=== PATIENT | male | born 1950 | race Caucasian/White ===

== ENCOUNTER → 2020-04-13 | Outpatient (CLI) | payer MEDICARE, OTHER ==
[~2020-04-13] MED LIST: AUGMENTIN 875-1 EACH PO; BENTYL 10MG CAP10 MG PO; CETIRIZINE HCL10 MG PO; COLACE 100MG C100 MG PO; COZAAR100 MG PO; DICLOFENAC SODI75 MG PO; DOXYCYCLINE MO100 MG PO; DRISDOL1250 MCG PO; ELIQUIS 2.5 MG2.5 MG PO; ELIQUIS5 M1 PO; FLUZONE QU60 MCG/015 IM; GAS RELIEF125 M1 PO; HYDROCHLOROTHIA25 MG PO; IPRAT-ALBUT 0.5-3 ML INH; LEVALBUTER0.63 MG/3 NEB; LEVOFLOXACIN500 MG PO; MIRALAX17 GM PO; OMEPRAZOLE40 MG PO; PERCOCET 7.5-31 EACH PO; PRAVASTATIN SOD40 MG PO; PREDNISONE 20 M20 MG PO; PREDNISONE10 MG PO; PREDNISONE20 MG PO; PROSCAR 5 MG TAB5 MG PO; PROSCAR5 MG PO; SINGULAIR10 MG PO; SYMBICORT 16010.2 GM INH; TRELEGY ELLIPT1 EAC1 INH; TRELEGY ELLIPT1 EACH INH; VENTOLIN HFA 66.7 GM INH; VITAMIN D31250 MCG PO; VOLTAREN EC 7575 MG PO; ZANTAC150 MG PO; ZITHROMAX TRI-500 MG PO; ZOFRAN ODT 4 MG4 MG PO; ZYRTEC10 MG PO; [UNRECOGNIZED DRUG - REMARK]
== END ==
LOC: SLEEP-COR 10:39
DX: G47.33 Obstructive sleep apnea (adult) (pediatric) (principal)
CPT/HCPCS: 95810

== ENCOUNTER → 2020-04-30 | Outpatient (CLI) | payer MEDICARE, OTHER | LOC: HEART 5 15:22 | DX: J44.9 Chronic obstructive pulmonary disease, unspecified (principal); Z87.891 Personal history of nicotine dependence | CPT/HCPCS: 94010; 94729 ==

== ENCOUNTER 2020-06-25 05:06 | Emergency (ER) | payer MEDICARE, OTHER ==
[~2020-06-25 05:06] MED LIST changes: -AUGMENTIN 875-1 EACH PO; -BENTYL 10MG CAP10 MG PO; -CETIRIZINE HCL10 MG PO; -COLACE 100MG C100 MG PO; -DICLOFENAC SODI75 MG PO; -DRISDOL1250 MCG PO; -ELIQUIS5 M1 PO; -GAS RELIEF125 M1 PO; -LEVALBUTER0.63 MG/3 NEB; -MIRALAX17 GM PO; -OMEPRAZOLE40 MG PO; -PRAVASTATIN SOD40 MG PO; -PREDNISONE10 MG PO; -PROSCAR 5 MG TAB5 MG PO; -SINGULAIR10 MG PO; -TRELEGY ELLIPT1 EAC1 INH; -TRELEGY ELLIPT1 EACH INH; -VITAMIN D31250 MCG PO; -ZOFRAN ODT 4 MG4 MG PO; -ZYRTEC10 MG PO
[2020-06-25 05:46] LABS: HEMOGLOBIN 15.9 gm/dl (14.0-17.5); RED BLOOD COUNT 5.26 M/UL (4.20-5.50); WHITE BLOOD COUNT 11.1 K/UL (4.5-11.0)
[2020-06-25 05:59] LABS: BUN/CREATININE RATIO 30 (0-10)
[2020-06-25] MEDS ORDERED: BENTYL 10MG CAP10 MG PO (14:05)
[2020-06-25] MEDS ORDERED: COLACE 100MG C100 MG PO (14:05)
[2020-06-25] MEDS ORDERED: ZOFRAN ODT 4 MG4 MG PO (14:05)
[2020-06-25] MEDS ORDERED: ZYRTEC10 MG PO (17:11)
[2020-06-25] MEDS ORDERED: GAS RELIEF125 M1 PO (17:12)
[2020-06-25] MEDS ORDERED: VOLTAREN EC 7575 MG PO (17:13)
[2020-06-25] MEDS ORDERED: PROSCAR 5 MG TAB5 MG PO (17:13)
[2020-06-25] MEDS ORDERED: PRAVASTATIN SOD40 MG PO (17:13)
[2020-06-25] MEDS ORDERED: HYDROCHLOROTHIA25 MG PO (17:14)
[2020-06-25] MEDS ORDERED: COZAAR100 MG PO (17:14)
[2020-06-25] MEDS ORDERED: TRELEGY ELLIPT1 EACH INH (17:15)
[2020-06-25] MEDS ORDERED: SINGULAIR10 MG PO (17:15)
[2020-06-25] MEDS ORDERED: IPRAT-ALBUT 0.5-3 ML INH (17:16)
[2020-06-25] MEDS ORDERED: DRISDOL1250 MCG PO (17:16)
[2020-06-25] MEDS ORDERED: VENTOLIN HFA 66.7 GM INH (17:16)
[2020-06-25] MEDS ORDERED: PREDNISONE10 MG PO (17:17)
== END 2020-06-25 14:20 | disposition home or self-care (01) ==
LOC: ER1 05:06
PROVIDERS: Student in an Organized Health Care Education/Training Program
DX: R10.10 Upper abdominal pain, unspecified (principal); R07.9 Chest pain, unspecified; R11.10 Vomiting, unspecified; J44.9 Chronic obstructive pulmonary disease, unspecified; I10 Essential (primary) hypertension
CPT/HCPCS: 71045; 71275; 76705; 80053; 81001; 82550; 82553; 83605; 83690; 83735; 83874; 83880; 84100; 84484; 85025; 93005; J2270; J2405; J2765; Q9967

== ENCOUNTER 2020-06-25 15:25 | Observation (INO) | payer MEDICARE, OTHER ==
[~2020-06-25] VITALS: Ht 185.4 cm; Wt 127.0 kg
[~2020-06-25 15:25] MED LIST changes: +BENTYL 10MG CAP10 MG PO; +COLACE 100MG C100 MG PO; +ZOFRAN ODT 4 MG4 MG PO
[2020-06-25 16:55] LABS: HEMOGLOBIN 15.6 gm/dl (14.0-17.5); RED BLOOD COUNT 5.15 M/UL (4.20-5.50)
[2020-06-25] MEDS ORDERED: ZYRTEC10 MG PO (17:11)
[2020-06-25] MEDS ORDERED: GAS RELIEF125 M1 PO (17:12)
[2020-06-25] MEDS ORDERED: VOLTAREN EC 7575 MG PO (17:13)
[2020-06-25] MEDS ORDERED: PRAVASTATIN SOD40 MG PO (17:13)
[2020-06-25] MEDS ORDERED: PROSCAR 5 MG TAB5 MG PO (17:13)
[2020-06-25] MEDS ORDERED: HYDROCHLOROTHIA25 MG PO (17:14)
[2020-06-25] MEDS ORDERED: COZAAR100 MG PO (17:14)
[2020-06-25] MEDS ORDERED: TRELEGY ELLIPT1 EACH INH (17:15)
[2020-06-25] MEDS ORDERED: SINGULAIR10 MG PO (17:15)
[2020-06-25] MEDS ORDERED: IPRAT-ALBUT 0.5-3 ML INH (17:16)
[2020-06-25] MEDS ORDERED: DRISDOL1250 MCG PO (17:16)
[2020-06-25] MEDS ORDERED: VENTOLIN HFA 66.7 GM INH (17:16)
[2020-06-25] MEDS ORDERED: PREDNISONE10 MG PO (17:17)
[2020-06-25 17:20] LABS: BUN/CREATININE RATIO 25 (0-10)
[2020-06-25 17:29] LABS: WHITE BLOOD COUNT 17.9 K/UL (4.5-11.0)
[2020-06-26 05:05] LABS: HEMOGLOBIN 14.6 gm/dl (14.0-17.5); RED BLOOD COUNT 4.83 M/UL (4.20-5.50); WHITE BLOOD COUNT 15.9 K/UL (4.5-11.0)
[2020-06-26 05:34] LABS: BUN/CREATININE RATIO 23 (0-10)
[2020-06-27 07:44] LABS: HEMOGLOBIN 13.2 gm/dl (14.0-17.5); RED BLOOD COUNT 4.37 M/UL (4.20-5.50); WHITE BLOOD COUNT 13.4 K/UL (4.5-11.0)
[2020-06-27 08:21] LABS: BUN/CREATININE RATIO 19 (0-10)
[2020-06-27] MEDS ORDERED: AUGMENTIN 875-1 EACH PO (11:55)
--- NOTE | 2020-06-27 12:54 | NUR ---
INSTRUCTED PATIENT ON LOW FAT DIET, SIGNS AND SYMPTOMS OF GALL BLADDER DISEASE. KEEP FOLLOW UP APPOITMENT, VERBALIZED UNDERSTANDING. LESLIE REED R.N.
== END 2020-06-27 14:11 | disposition home or self-care (01) ==
LOC: ER1 15:25 → CDU 16:33 → M/S 23:06
PROVIDERS: Emergency Medicine; Physician Assistant; ADMIT Internal Medicine
DX: K82.8 Other specified diseases of gallbladder (principal); I10 Essential (primary) hypertension; G47.33 Obstructive sleep apnea (adult) (pediatric); E78.5 Hyperlipidemia, unspecified; N40.0 Benign prostatic hyperplasia without lower urinary tract symptoms; E87.2 Acidosis; Z87.891 Personal history of nicotine dependence; Z83.3 Family history of diabetes mellitus; Z82.49 Family history of ischemic heart disease and other diseases of the circulatory system; Z80.9 Family history of malignant neoplasm, unspecified; Z79.899 Other long term (current) drug therapy; Z20.822 Contact with and (suspected) exposure to COVID-19
CPT/HCPCS: 36415; 71045; 71275; 76705; 80053; 81001; 82550; 82553; 83036; 83605; 83690; 83735; 83874; 83880; 84100; 84484; 85025; 93005; 94640; 94664; 94760; 96374; 96375; 96376; 99285; G0378; J2270; J2405; J2543; J2765; J7030; Q9967; U0002

== ENCOUNTER 2020-07-07 18:17 | Inpatient (IN) | payer MEDICARE, OTHER ==
[~2020-07-07] VITALS: Ht 185.4 cm; Wt 127.0 kg
[~2020-07-07 18:17] MED LIST changes: +AUGMENTIN 875-1 EACH PO; +DRISDOL1250 MCG PO; +GAS RELIEF125 M1 PO; +PRAVASTATIN SOD40 MG PO; +PREDNISONE10 MG PO; +PROSCAR 5 MG TAB5 MG PO; +SINGULAIR10 MG PO; +TRELEGY ELLIPT1 EACH INH; +ZYRTEC10 MG PO
[2020-07-07 19:10] LABS: HEMOGLOBIN 12.4 gm/dl (14.0-17.5); RED BLOOD COUNT 4.23 M/UL (4.20-5.50); WHITE BLOOD COUNT 11.5 K/UL (4.5-11.0)
[2020-07-07 19:26] LABS: BUN/CREATININE RATIO 15 (0-10)
[2020-07-08 05:34] LABS: HEMOGLOBIN 11.5 gm/dl (14.0-17.5); RED BLOOD COUNT 3.85 M/UL (4.20-5.50); WHITE BLOOD COUNT 8.4 K/UL (4.5-11.0)
[2020-07-08 06:00] LABS: BUN/CREATININE RATIO 14 (0-10)
[2020-07-09 03:07] LABS: HEMOGLOBIN 11.1 gm/dl (14.0-17.5); RED BLOOD COUNT 3.9 M/UL (4.20-5.50); WHITE BLOOD COUNT 8.2 K/UL (4.5-11.0)
[2020-07-09 03:26] LABS: BUN/CREATININE RATIO 14 (0-10)
[2020-07-10 04:48] LABS: HEMOGLOBIN 11.3 gm/dl (14.0-17.5); RED BLOOD COUNT 3.89 M/UL (4.20-5.50)
[2020-07-10 04:53] LABS: WHITE BLOOD COUNT 10.3 K/UL (4.5-11.0)
[2020-07-10 05:08] LABS: BUN/CREATININE RATIO 16 (0-10)
[2020-07-10] MEDS ORDERED: AUGMENTIN 875-1 EACH PO (11:18)
--- NOTE | 2020-07-10 12:42 | NUR ---
patient on rrom air pulse ox sat was 85%.
== END 2020-07-10 14:52 | disposition home or self-care (01) | DRG 417 ==
LOC: ER1 18:17 → MED SURG 4 21:38 → CDU 21:38 → MED SURG 4 07-08 00:48
PROVIDERS: Internal Medicine; Preventive Medicine Occupational Medicine; Surgery; ADMIT Internal Medicine
PROC: BF131ZZ Fluoroscopy of Gallbladder and Bile Ducts using Low Osmolar Contrast (ICD-10-PCS; 2020-07-09)
PROC: 0FT44ZZ Resection of Gallbladder, Percutaneous Endoscopic Approach (ICD-10-PCS; principal; 2020-07-09 10:05)
DX: K81.0 Acute cholecystitis (principal); J18.9 Pneumonia, unspecified organism; N17.9 Acute kidney failure, unspecified; J44.0 Chronic obstructive pulmonary disease with (acute) lower respiratory infection; J96.11 Chronic respiratory failure with hypoxia; Z20.822 Contact with and (suspected) exposure to COVID-19; E78.5 Hyperlipidemia, unspecified; I10 Essential (primary) hypertension; K21.9 Gastro-esophageal reflux disease without esophagitis; E11.9 Type 2 diabetes mellitus without complications; G47.33 Obstructive sleep apnea (adult) (pediatric); E66.8 Other obesity; Z96.651 Presence of right artificial knee joint; N40.0 Benign prostatic hyperplasia without lower urinary tract symptoms; Z87.891 Personal history of nicotine dependence; Z83.3 Family history of diabetes mellitus; Z80.9 Family history of malignant neoplasm, unspecified; Z79.4 Long term (current) use of insulin; Z68.36 Body mass index [BMI] 36.0-36.9, adult
CPT/HCPCS: 36415; 76705; 80053; 80202; 81001; 83605; 83690; 83735; 85025; 85027; 85652; 86140; 87040; 87086; 94640; 94664; 94760; 96374; 96375; 99285; J1100; J1170; J1644; J2001; J2185; J2270; J2405; J2543; J2704; J2710; J3010; J3370; J7030; J7070; J7120; Q9962; Q9967; U0002

== ENCOUNTER → 2020-08-14 | Outpatient (CLI) | payer MEDICARE, OTHER ==
[~2020-08-14] MED LIST changes: +CETIRIZINE HCL10 MG PO; +DICLOFENAC SODI75 MG PO; +ELIQUIS5 M1 PO; +LEVALBUTER0.63 MG/3 NEB; +MIRALAX17 GM PO; +OMEPRAZOLE40 MG PO; +TRELEGY ELLIPT1 EAC1 INH; +VITAMIN D31250 MCG PO
== END ==
LOC: RT 12:23
DX: R09.02 Hypoxemia (principal)
CPT/HCPCS: 36600; 82803

== ENCOUNTER 2020-08-15 19:35 | Inpatient (IN) | payer MEDICARE, OTHER ==
[~2020-08-15] VITALS: Ht 185.4 cm; Wt 127.9 kg
[~2020-08-15 19:35] MED LIST changes: -CETIRIZINE HCL10 MG PO; -DICLOFENAC SODI75 MG PO; -ELIQUIS5 M1 PO; -LEVALBUTER0.63 MG/3 NEB; -MIRALAX17 GM PO; -OMEPRAZOLE40 MG PO; -TRELEGY ELLIPT1 EAC1 INH; -VITAMIN D31250 MCG PO
[2020-08-15 20:58] LABS: HEMOGLOBIN 15.7 gm/dl (14.0-17.5); RED BLOOD COUNT 5.21 M/UL (4.20-5.50); WHITE BLOOD COUNT 13.1 K/UL (4.5-11.0)
[2020-08-15 21:31] LABS: BUN/CREATININE RATIO 26 (0-10)
[2020-08-16] MEDS ORDERED: TRELEGY ELLIPT1 EAC1 INH (11:34)
[2020-08-16] MEDS ORDERED: CETIRIZINE HCL10 MG PO (11:38)
[2020-08-16] MEDS ORDERED: DICLOFENAC SODI75 MG PO (13:13)
[2020-08-16] MEDS ORDERED: VITAMIN D31250 MCG PO (15:27)
[2020-08-16] MEDS ORDERED: MIRALAX17 GM PO (15:30)
[2020-08-16] MEDS ORDERED: OMEPRAZOLE40 MG PO (17:12)
[2020-08-17 05:03] LABS: HEMOGLOBIN 13.2 gm/dl (14.0-17.5); RED BLOOD COUNT 4.45 M/UL (4.20-5.50); WHITE BLOOD COUNT 8.1 K/UL (4.5-11.0)
[2020-08-17 05:16] LABS: BUN/CREATININE RATIO 23 (0-10)
[2020-08-17] MEDS ORDERED: LEVALBUTER0.63 MG/3 NEB (13:15)
[2020-08-17] MEDS ORDERED: ELIQUIS5 M1 PO (13:15)
--- NOTE | 2020-08-17 13:44 | NUR ---
PATIENT OXYGEN SAT 88% WHEN ON 4L NC. OXYGEN SAT INCREASED TO 92% WHEN ON 5L NC.
== END 2020-08-17 15:27 | disposition home or self-care (01) | DRG 175 ==
LOC: ER1 19:35 → M/S 22:44 → CDU 22:44 → M/S 08-16 00:51
PROVIDERS: Internal Medicine Infectious Disease; Physician Assistant; ADMIT Internal Medicine
PROC: 5A09357 Assistance with Respiratory Ventilation, Less than 24 Consecutive Hours, Continuous Positive Airway Pressure (ICD-10-PCS; 2020-08-15)
PROC: B24BZZ4 Ultrasonography of Heart with Aorta, Transesophageal (ICD-10-PCS; principal; 2020-08-16)
DX: I26.99 Other pulmonary embolism without acute cor pulmonale (principal); J96.21 Acute and chronic respiratory failure with hypoxia; I82.401 Acute embolism and thrombosis of unspecified deep veins of right lower extremity; J44.9 Chronic obstructive pulmonary disease, unspecified; N18.9 Chronic kidney disease, unspecified; G47.33 Obstructive sleep apnea (adult) (pediatric); Z20.822 Contact with and (suspected) exposure to COVID-19; Z96.651 Presence of right artificial knee joint; I12.9 Hypertensive chronic kidney disease with stage 1 through stage 4 chronic kidney disease, or unspecified chronic kidney disease; E78.5 Hyperlipidemia, unspecified; E11.22 Type 2 diabetes mellitus with diabetic chronic kidney disease; N40.0 Benign prostatic hyperplasia without lower urinary tract symptoms; Z87.891 Personal history of nicotine dependence; Z99.81 Dependence on supplemental oxygen; Z68.37 Body mass index [BMI] 37.0-37.9, adult; Z79.4 Long term (current) use of insulin; Z79.01 Long term (current) use of anticoagulants; Z87.01 Personal history of pneumonia (recurrent); Z90.49 Acquired absence of other specified parts of digestive tract
CPT/HCPCS: ECHO; 0240U; 36415; 36600; 71045; 80053; 82550; 82553; 82803; 83605; 83874; 83880; 84484; 85025; 85610; 85730; 87040; 93005; 93306; 93970; 94640; 94660; 94760; 99285; J1644; J2060; J2270; Q9967

== ENCOUNTER → 2020-11-21 | Outpatient (CLI) | payer MEDICARE, OTHER ==
[~2020-11-21] MED LIST changes: +CETIRIZINE HCL10 MG PO; +DICLOFENAC SODI75 MG PO; +ELIQUIS5 M1 PO; +LEVALBUTER0.63 MG/3 NEB; +MIRALAX17 GM PO; +OMEPRAZOLE40 MG PO; +TRELEGY ELLIPT1 EAC1 INH; +VITAMIN D31250 MCG PO
== END ==
LOC: HEART 5 11:17
DX: R00.1 Bradycardia, unspecified (principal)

== ENCOUNTER → 2020-12-25 | Outpatient (CLI) | payer MEDICARE, OTHER ==
[~2020-12-25] MED LIST changes: +CYCLOBENZAPRINE10 MG PO; +HYDROCODON-ACE1 EAC4 PO; +IBUPROFEN600 MG PO; +MEDROL4 MG PO
== END ==
LOC: HEART 5 12:37
DX: J45.40 Moderate persistent asthma, uncomplicated (principal)
CPT/HCPCS: 94060; 95012

== ENCOUNTER 2020-12-26 19:47 | Emergency (ER) | payer MEDICARE, OTHER ==
[~2020-12-26 19:47] MED LIST changes: -CYCLOBENZAPRINE10 MG PO; -HYDROCODON-ACE1 EAC4 PO; -IBUPROFEN600 MG PO; -MEDROL4 MG PO
[2020-12-26 20:36] LABS: HEMOGLOBIN 15.9 gm/dl (14.0-17.5); RED BLOOD COUNT 5.24 M/UL (4.20-5.50); WHITE BLOOD COUNT 7.1 K/UL (4.5-11.0)
[2020-12-26 20:51] LABS: BUN/CREATININE RATIO 20 (0-10)
[2020-12-26] MEDS ORDERED: HYDROCODON-ACE1 EAC4 PO (21:41)
[2020-12-26] MEDS ORDERED: MEDROL4 MG PO (21:41)
[2020-12-26] MEDS ORDERED: CYCLOBENZAPRINE10 MG PO (21:43)
[2020-12-26] MEDS ORDERED: IBUPROFEN600 MG PO (21:44)
== END 2020-12-26 23:15 | disposition home or self-care (01) ==
LOC: ER1 19:47
PROVIDERS: Emergency Medicine
DX: M54.2 Cervicalgia (principal); M54.50 Low back pain, unspecified; J44.9 Chronic obstructive pulmonary disease, unspecified; Z86.718 Personal history of other venous thrombosis and embolism; I10 Essential (primary) hypertension; Z86.711 Personal history of pulmonary embolism; Z79.01 Long term (current) use of anticoagulants
CPT/HCPCS: 72131; 73564; 80048; 85025; 85652; 86140; 96374; 96375; 96376; 99284; J2270; J2405

== ENCOUNTER → 2021-09-18 | Outpatient (CLI) | payer MEDICARE, OTHER ==
[~2021-09-18] MED LIST changes: +CYCLOBENZAPRINE10 MG PO; +HYDROCODON-ACE1 EAC4 PO; +IBUPROFEN600 MG PO; +MEDROL4 MG PO
== END ==
LOC: HEART 5 10:29
DX: J44.9 Chronic obstructive pulmonary disease, unspecified (principal); Z92.29 Personal history of other drug therapy
CPT/HCPCS: 94060; 95012